=== PATIENT | female | born 1990 | race Caucasian/White ===

== ENCOUNTER 2016-09-11 16:33 | Emergency (ER) | payer BC ==
--- NOTE | 2016-09-11 17:23 | UC ---
Abdominal Pain Female HPI - HPI Summary HPI Summary: complaint of abdominal apin in epoigastric area that started approx3 daysa go sometimes pain started in her back sharp then dull achy pain last for 1 - 20 minutes starts epigastric and radiates into her back feels nauseated- denies nausea, Diarrhea-last BM 2 days ago no appetite- today has eaten food and drinking fluids without difficulty denies dysuria- has IUD denies chest pain shortness of breath, dizziness, palpitations,diaphoresis denies fever has felt chilled took daytime cold and flu for nasal congestion today - History of Current Complaint Chief Complaint: UCAbdominalPain Stated Complaint: STOMACH PAIN Time Seen by Provider: 09/11/16 17:12 Hx Last Menstrual Period: 08/31/16 Allergies/Adverse Reactions: Allergies Allergy/AdvReac Type Severity Reaction Status Date / Time No Known Allergies Allergy Verified 09/11/16 16:51 Home Medications: Home Medications Iud 09/11/16 [History] PMH/Surg Hx/FS Hx/Imm Hx Previously Healthy: Yes - Surgical History Surgical History: None - Family History Known Family History: Negative: Cardiac Disease, Hypertension, Diabetes - Social History Occupation: Employed Full-time Alcohol Use: Occasionally Substance Use Type: None Smoking Status (MU): Never Smoked Tobacco Review of Systems Constitutional: Chills Skin: Negative Eyes: Negative ENT: Negative Respiratory: Negative Cardiovascular: Negative Gastrointestinal: Abdominal Pain, Other - nausea Genitourinary: Negative Motor: Negative Neurovascular: Negative Musculoskeletal: Negative Neurological: Negative Psychological: Negative All Other Systems Reviewed And Are Negative: Yes Physical Exam Triage Information Reviewed: Yes Appearance: No Pain Distress, Well-Nourished Vital Signs: Initial Vital Signs Temp 99.1 F 09/11/16 16:47 Pulse 70 09/11/16 16:47 Resp 18 09/11/16 16:47 BP 129/84 09/11/16 16:47 Pulse Ox 100 09/11/16 16:47 Vital Signs Reviewed: Yes Eyes: Positive: Conjunctiva Clear ENT: Positive: Pharynx normal, TMs normal Neck: Positive: Supple, No Lymphadenopathy Respiratory: Positive: Lungs clear, Normal breath sounds, No respiratory distress Cardiovascular: Positive: RRR, No Murmur, Pulses Normal Abdomen Description: Positive: No Organomegaly, Soft, Other: - tenderness throughout. Negative: CVA Tenderness (R), CVA Tenderness (L), Distended, Guarding Bowel Sounds: Positive: Present Musculoskeletal: Positive: No Edema Neurological: Positive: Alert Psychological Exam: Normal Skin Exam: Normal Abd Pain Female Course/Dx - Course Course Of Treatment: exam completed. recommend further evaluation in emergency room d/t possibility of acute abdomen. pt refuses and states understanding of risks - Differential Dx/Diagnosis Differential Diagnosis: Bowel Obstruction, Constipation, Gall Bladder Disease, Irritable Bowel Syndrome Provider Diagnoses: abdominal pain Discharge - Discharge Plan Condition: Stable Disposition: AGAINST MEDICAL ADVICE Patient Education Materials: Acute Abdominal Pain (ED) Referrals: Gonsalo Boothe MD [Primary Care Provider] - [facility] [Outside] Additional Instructions: It is recommended that you go to the emergency room for further evaluation of abdominal pain If your pain increases please do not hesitate to proceed to the emergency department
== END 2016-09-11 17:57 | disposition left against medical advice (07) ==
LOC: UCCORT 16:33
DX: R10.13 Epigastric pain (principal); R09.81 Nasal congestion; Z32.02 Encounter for pregnancy test, result negative
CPT/HCPCS: 81025; 99202; G0463

== ENCOUNTER 2018-09-18 11:50 | Emergency (ER) | payer BC ==
[2018-09-18 12:14] VITALS: BP 122/82
[2018-09-18] MEDS: Ondansetron ODT TAB* 4 MG SL ONE (13:02)
--- NOTE | 2018-09-18 13:02 | UC ---
UC General HPI - HPI Summary HPI Summary: Patient woke up this morning nauseated and vomiting twice. Had a loose stool this AM. Feels dizzy and off since then. Had a sore throat two days ago with a subjective fever. Her throat feels better. +COngestion. Took tylenol this AM. Able to drink liquids after her last vomiting at 9 am this morning. No cough. Mild abdominal discomfort. No CP or SOB. PMHx: reviewed Meds: reviewed - History of Current Complaint Chief Complaint: UCRespiratory Stated Complaint: VOMITING,SINUS COMPLAINT Time Seen by Provider: 09/18/18 12:44 Hx Last Menstrual Period: 08/26/18 Pain Intensity: 5 - Allergy/Home Medications Allergies/Adverse Reactions: Allergies Allergy/AdvReac Type Severity Reaction Status Date / Time No Known Allergies Allergy Verified 09/18/18 12:14 Home Medications: Home Medications Acetaminophen [Masophen] 650 mg PO ONCE PRN 09/18/18 [History Confirmed 09/18/18 ] Calcium Carbonate [Tums E-X 750] 300 mg PO ONCE PRN 09/18/18 [History Confirmed 09/18/18] Ibuprofen 400 mg PO ONCE PRN 09/18/18 [History Confirmed 09/18/18] PMH/Surg Hx/FS Hx/Imm Hx Previously Healthy: Yes - Surgical History Surgical History: None - Family History Known Family History: Negative: Cardiac Disease, Hypertension, Diabetes - Social History Alcohol Use: Occasionally Substance Use Type: None Smoking Status (MU): Never Smoked Tobacco Review of Systems All Other Systems Reviewed And Are Negative: Yes Constitutional: Positive: Chills Eyes: Positive: Negative ENT: Positive: Sore Throat Gastrointestinal: Positive: Vomiting, Diarrhea, Nausea Is Patient Immunocompromised?: No Physical Exam Appearance: Well-Appearing Vital Signs: Initial Vital Signs Temp 97.7 F 09/18/18 12:10 Pulse 71 09/18/18 12:10 Resp 18 09/18/18 12:10 BP 122/82 09/18/18 12:10 Pulse Ox 100 09/18/18 12:10 Vital Signs Reviewed: Yes ENT: Positive: Pharyngeal erythema Neck: Positive: Supple, Enlarged Nodes @ - anterior cervical chain Respiratory: Positive: Chest non-tender, Normal breath sounds Cardiovascular: Positive: RRR, No Murmur Abdomen Description: Positive: Soft, Other: - diffuse tenderness. No rebound or gaurding Bowel Sounds: Positive: Present Course/Dx - Course Course Of Treatment: This is a 27 yr old with recent sore throat, now N/V/D. Assessment. Rapid strep: Negative. Zofran 4 mg SL given - Able to keep down fluids. Dx; Gastroenteritis. Plan. Continue to drink fluids and bland diet. Can take zofran every 8 hours as needed for nausea (next time it is safe to take is 9 pm). If symptoms persist, worsen or unable to keep anything down, return to urgent care or ER. Plan. Continue supportive care. Recommend Zofran every 8 hours as needed for nausea. Can continue tylenol as needed for pain/fever. If symptoms persist or worsen, call your PCP For further evaluation - Diagnoses Provider Diagnosis: Gastroenteritis Discharge - Sign-Out/Discharge Documenting (check all that apply): Patient Departure All imaging exams completed and their final reports reviewed: No Studies - Discharge Plan Condition: Good Disposition: HOME Prescriptions: Ondansetron ODT TAB* [Zofran 4 MG Odt TAB*] 4 mg PO Q8H PRN #10 tab.odt PRN Reason: Nausea Patient Education Materials: Gastroenteritis (ED) Referrals: No Primary Care Phys,NOPCP [Primary Care Provider] - Additional Instructions: Continue to drink fluids and bland diet Can take zofran every 8 hours as needed for nausea (next time it is safe to take is 9 pm) If symptoms persist, worsen or unable to keep anything down, return to urgent care or ER - Billing Disposition and Condition Condition: GOOD Disposition: Home
== END 2018-09-18 13:33 | disposition home or self-care (01) ==
LOC: UCCORT 11:50
DX: K52.9 Noninfective gastroenteritis and colitis, unspecified (principal)
CPT/HCPCS: 87651; 99212; A9270-GY; G0463